=== PATIENT | female | born 1945 | race Caucasian/White ===

== ENCOUNTER 2022-12-31 14:52 | Outpatient (AMB) | payer OTHER, SELFPAY ==
--- NOTE | 2022-12-31 15:31 | MHC.OFFWIV ---
Intake Vital Signs 12/31/22 15:35 Height 5 ft 1.5 in Weight 157 lb 6 oz BMI 29.3 BP 116/82 Blood Pressure Location Lt brachial Position Sitting Pulse 85 Pulse Source Pulse Oximeter Temp 99.5 F Temp Source Oral Pulse Oximetry (%) 94 Oxygen Delivery Method Room Air Intake Visit Reasons: EP, fever, body aches, right ear pain (masked) Intake Note: pt is here for a fever and body aches since over the weekend and she says she has a sharp right ear pain since Sep Allergies amoxicillin Allergy (Severe, Verified 12/31/22 16:07) Rash ampicillin Allergy (Severe, Verified 12/31/22 16:07) Rash Penicillins Allergy (Severe, Verified 12/31/22 16:07) Rash erythromycin base Allergy (Intermediate, Verified 12/31/22 16:07) Vomiting Medication List - Last Reconciled 12/31/22 by Joseph Fang MD albuterol sulfate 90 mcg/actuation inhalation atorvastatin 20 mg PO DAILY ipratropium bromide intranasal multivitamin (Daily Multi-Vitamin tablet) 1 tab PO DAILY vit C,D-Nd-blwvf-lutein-zeaxan 250-90-40-1 mg (PreserVision AREDS-2) 1 tab PO BID HPI EP, fever, body aches, right ear pain (masked) HPI Details Patient presents for a sick visit. Reporting symptoms of sinus congestion, sore throat and difficulty swallowing. Low-grade fever. No family member is sick. No recent travel. Patient reports symptoms of malaise and fatigue. Physical Exam Vital Signs: Last Vital Signs Temp 99.5 F 12/31/22 15:35 Pulse 85 12/31/22 15:35 BP 116/82 12/31/22 15:35 Pulse Ox 94 12/31/22 15:35 Oxygen Delivery Method Room Air 12/31/22 15:35 BMI result Body Mass Index 29.3 Const General: cooperative and healthy appearing Nutritional Appearance: well nourished Orientation/consciousness: patient oriented x3 Limitations: no limitations HEENT Head: Yes normal to inspection Eyes General: appearance normal, both eyes and all related structures Neck Neck: Yes normal visual inspection Chest Chest palpation & inspection: normal palpation of entire chest wall Resp Effort & Inspection: normal respiratory effort Neuro General: patient oriented x3 Assessment & Plan Assessment & Plan (1) Upper respiratory tract infection: Code(s): J06.9 - Acute upper respiratory infection, unspecified Plan: Antibiotics ordered. Increase fluid intake. Tylenol for aches and pains. If symptoms worsen, follow-up here for a recheck. Coding Level of Care Code New Pt Level 3 (58845) Diagnoses Upper respiratory tract infection J06.9
[2022-12-31 15:35] VITALS: BP 116/82; PULSE 85; TEMP 37.5; O2SAT 94; BMI 29.3
== END 2022-12-31 16:15 | disposition home or self-care (01) ==
PROVIDERS: PCP Internal Medicine; Visit Provider Internal Medicine
DX: J06.9 Acute upper respiratory infection, unspecified (principal)
CPT/HCPCS: 99203

== ENCOUNTER 2023-05-19 07:36 | Outpatient (AMB) | payer OTHER, SELFPAY ==
[2023-05-19 07:55] VITALS: BP 124/80; PULSE 77; O2SAT 97; BMI 29.9
--- NOTE | 2023-05-19 07:55 | MHC.PC.OV ---
Vital Signs 05/19/23 07:55 Height 5 ft 1.5 in Weight 161 lb BMI 29.9 BP 124/80 Blood Pressure Location Lt brachial Position Sitting Pulse 77 Pulse Source Pulse Oximeter Pulse Oximetry (%) 97 Oxygen Delivery Method Room Air Intake Visit Reasons: Est Care/requesting PE Intake Note: Pt is here today as a new patient to est care/PE Allergies amoxicillin Allergy (Severe, Verified 05/19/23 07:56) Rash ampicillin Allergy (Severe, Verified 05/19/23 07:56) Rash Penicillins Allergy (Severe, Verified 05/19/23 07:56) Rash erythromycin base Allergy (Intermediate, Verified 05/19/23 07:56) Vomiting alendronate sodium [From Fosamax] Adverse Reaction (Unverified 05/19/23 08:10) GERD Medication List - Last Reconciled 05/19/23 by Xiomy Mclean MD albuterol sulfate 90 mcg/actuation inhalation atorvastatin 20 mg PO DAILY cholecalciferol (vitamin D3) 125 mcg PO QWEEK ipratropium bromide intranasal multivitamin (Daily Multi-Vitamin tablet) 1 tab PO DAILY vit C,B-Sl-ealns-lutein-zeaxan 250-90-40-1 mg (PreserVision AREDS-2) 1 tab PO BID Tobacco use date assessed: 05/19/23 Fall risk assessment: No Falls in past year Last assessed Fall Risk: 05/19/23 Dental Screening Dental Screen Date: 05/19/23 Did you have a dental visit in the last 12 months?: Yes Did you have a dental problem in the last 6 months where you did not have access to dental care?: No Was dental information given to patient?: Patient has dentist HPI Est Care/requesting PE HPI Details Pt presents for [employer] PE. 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 1. Little interest or pleasure in doing things: not at all 2. Feeling down, depressed, or hopeless: not at all 3. Trouble falling or staying asleep, or sleeping too much: more than half the days 4. Feeling tired or having little energy: more than half the days 5. Poor appetite or overeating: not at all 6. Feeling bad about yourself - or that you are a failure or have let yourself or your family down: not at all 7. Trouble concentrating on things, such as reading the newspaper or watching television: not at all 8. Moving or speaking so slowly that other people could have noticed. Or the opposite - being so fidgety or restless that you have been moving around a lot more than usual: not at all 9. Thoughts that you would be better off or of hurting yourself in some way: not at all Total score: 4 Depression Screening Interpretation: Negative Depression Screening Done: Yes Source: Developed by Drs. Mynor Zhou, Jennyfer Mullen, Imtiaz Navarrete and colleagues, with an educational vidya from [employer] Thrive Questionnaire Date Thrive assessed: 05/19/23 I am a: Patient What is your living situation today?: I have a steady place to live Within the past 12 months, did the food you bought not last and you didn't have the money to get more?: Never true Within the past 12 months, did you worry whether your food would run out before you got money to buy more?: Never true Do you have trouble paying for medicines?: No Do you have trouble getting transportation to medical appointments?: No Do you have trouble paying your heating and electricity bill?: No Do you have trouble taking care of your child, family member or friend?: No Do you have trouble with day-to-day activities such as bathing, preparing meals, shopping, managing finances, etc.?: No Are you currently unemployed and looking for a job?: No Are you interested in more education?: No THRIVE Score: 0 AUDIT C Alcohol Use Questionnaire (AUDIT-C) 1. How often do you have a drink containing alcohol?: Never Total Score: 0 PHOEBE-7 AMB Questionnaire PHOEBE-7 Date PHOEBE - 7 assessed: 05/19/23 Feeling nervous, anxious, or on edge: 0 = Not at all Not being able to stop or control worryin = Not at all Worrying too much about different things: 0 = Not at all Trouble relaxin = Not at all Being so restless that it is hard to sit still: 0 = Not at all Becoming easily annoyed or irritable: 0 = Not at all Feeling afraid as if something awful might happen: 0 = Not at all Total PHOEBE-7 score (0-4 normal; 5-9 mild; 10-14 moderate; 15-21 severe): 0 Source: Developed by Drs. Mynor Zhou, Jennyfer Mullen, Imtiaz Navarrete and colleagues, with an educational vidya from [employer]). Review of Systems Const All systems reviewed & are unremarkable except as noted in HPI and below Reports no additional complaints Eyes Reports no additional complaints ENT Reports no additional complaints Card Reports no additional complaints Resp Reports no additional complaints GI Reports no additional complaints Reports no additional complaints Physical exam (Primary Care) Vital Signs: Last Vital Signs Pulse 77 05/19/23 07:55 BP 124/80 05/19/23 07:55 Pulse Ox 97 05/19/23 07:55 Oxygen Delivery Method Room Air 05/19/23 07:55 BMI result Body Mass Index 29.9 Tobacco/Smoking Status: Tobacco use Status Tobacco use date assessed 05/19/23 05/19/23 08:00 Patient Tobacco Use Status Never used Tobacco 05/19/23 08:00 e-Cigarette/Vaping Use Never Used 05/19/23 08:00 PHQ-9: PHQ-9 Score PHQ-9: Total score 4 05/19/23 08:02 Depression Screening Interpretation: Negative Thrive Assessment: Date of Thrive Assessment Date Thrive assessed 05/19/23 05/19/23 08:02 Const General: no acute distress HENMT Head: Yes normal to inspection Ears: hearing grossly normal bilaterally General nose exam: Normal external nose present Face and sinus: Yes normal facial exam Mouth: Normal oral and palatal mucosa present Eyes General: appearance normal, both eyes and all related structures Neck Neck: Yes no lymphadenopathy and Yes supple Resp Effort & Inspection: normal respiratory effort Auscultation: clear to auscultation bilaterally Cardio Rhythm: regular rhythm Heart sounds: S1 normal heart sound present and S2 normal heart sound present GI Inspection: Yes normal to inspection Palpation (GI): Soft to palpation Percussion: Yes normal to percussion Auscultation: normal bowel sounds Assessment and Plan Assessment & Plan (1) Hx of bilateral breast reduction surgery: Code(s): Z98.890 - Other specified postprocedural states (2) Hyperlipidemia: Code(s): E78.5 - Hyperlipidemia, unspecified Plan: CONTINUE LIPITOR CHECK BLOOD WORK TODAY (3) Vitamin D deficiency: Comment: Patient has been taking 5000 units of vitamin-D every day Code(s): E55.9 - Vitamin D deficiency, unspecified Plan: Check vitamin-D level (4) Seasonal allergic rhinitis: Comment: Follow-up with head animal keeper Code(s): J30.2 - Other seasonal allergic rhinitis (5) Hx of colonoscopy: Comment: negative [place] at 76 Code(s): Z98.890 - Other specified postprocedural states (6) Osteoporosis: Comment: DEXA 03/2021, intolerant to Fosamax GERD Code(s): M81.0 - Age-related osteoporosis without current pathological fracture Plan: Obtain DEXA (7) Annual physical exam: Code(s): Z00.00 - Encounter for general adult medical examination without abnormal findings Plan: Well-balanced diet regular exercise discussed with the patient. She will have a fasting blood work DEXA will be scheduled, patient will follow-up in 2 months Orders: Orders Complete Blood Count Auto Diff Today E55.9 - Vitamin D deficiency, unspecified, E78.5 - Hyperlipidemia, unspecified XR DEXA axial skeleton Today E55.9 - Vitamin D deficiency, unspecified, E78.5 - Hyperlipidemia, unspecified MM screening mammo BI Today Z12.31 - Encounter for screening mammogram for malignant neoplasm of breast Vitamin D 25-OH Total Today E55.9 - Vitamin D deficiency, unspecified, E78.5 - Hyperlipidemia, unspecified Lipid Panel Today E55.9 - Vitamin D deficiency, unspecified, E78.5 - Hyperlipidemia, unspecified Comprehensive [place]. Panel Fast Today E55.9 - Vitamin D deficiency, unspecified, E78.5 - Hyperlipidemia, unspecified UA w Microscopic Today E55.9 - Vitamin D deficiency, unspecified, E78.5 - Hyperlipidemia, unspecified Referrals Allergy & Immunology Referral J30.2 - Other seasonal allergic rhinitis Medications: New atorvastatin 20 mg PO DAILY 90 tabs 3RF Coding Level of Care Code New Pt Prev Care >65yr (74045) Diagnoses Hx of bilateral breast reduction surgery Z98.890 Hyperlipidemia E78.5 Vitamin D deficiency E55.9 Seasonal allergic rhinitis J30.2 Hx of colonoscopy Z98.890 Osteoporosis M81.0 Annual physical exam Z00.00
== END 2023-05-19 09:48 | disposition home or self-care (01) ==
PROVIDERS: PCP Internal Medicine; Visit Provider Internal Medicine
DX: Z98.890 Other specified postprocedural states (principal); E78.5 Hyperlipidemia, unspecified; E55.9 Vitamin D deficiency, unspecified; J30.2 Other seasonal allergic rhinitis; M81.0 Age-related osteoporosis without current pathological fracture; Z00.00 Encounter for general adult medical examination without abnormal findings
CPT/HCPCS: 99387

== ENCOUNTER 2023-05-19 08:29 | Outpatient (REF) | payer OTHER, SELFPAY ==
[2023-05-19 11:18] LABS: MANUAL DIFF FLAG NO
[2023-05-19 11:31] LABS: Basophils Percent Auto 0.7 % (0-2); Eosinophils Absolute Auto 0.1 X10*3/uL (0.0-0.4); Eosinophils Percent Auto 2.1 % (0-4); Hematocrit 42.3 % (37.0-47.0); Hemoglobin 13.5 g/dl (12.0-16.0); Imm Gran Abs Auto 0.01 X10*3/uL (0.00-0.03); Imm Gran Pct Auto 0.2 % (0.0-0.4); Lymphocytes Absolute Auto 1.1 X10*3/uL (1.2-4.9); Lymphocytes Percent Auto 24.9 % (20-40); Mean Corpuscular HGB Conc 31.9 g/dl (31.0-35.0); Mean Corpuscular Hemoglobin 31.5 pg (27.0-33.0); Mean Corpuscular Volume 98.8 fL (80.0-98.0); Mean Platelet Volume 10.3 fL (9.4-12.3); Monocytes Absolute Auto 0.6 X10*3/uL (0.1-1.2); Monocytes Percent Auto 12.8 % (2-11); Neutrophils Absolute Auto 2.5 x10*3/uL (2.0-8.3); Neutrophils Percent Auto 59.3 % (45-73); Platelet Count 210 X10*3/uL (160-400); Red Blood Count 4.28 X10*6/uL (4.20-5.50); Red Cell Distribution Width 13.3 % (11.0-16.0); White Blood Count 4.3 X10*3/uL (4.8-10.8)
[2023-05-19 12:12] LABS: Appearance Urine Clear; Color Urine Yellow; Glucose Urine UA Negative (Negative); Leukocyte Esterase Urine Negative (Negative); Nitrite Urine Negative (Negative); Specific Gravity - Urine 1.025 (1.005-1.025); Urine Blood Negative (Negative); Urine Ketones Negative (Negative); Urine Protein Negative (Neg-Trace)
[2023-05-19 12:16] LABS: Bacteria Urine None Seen (None Seen); Hyaline Casts Urine 0-2 /LPF (0-2); RBC Urine 0-2 /HPF (0-2); Squamous Epithelial Cell Urine 0-2 /HPF (0-2); WBC Urine 0-5 /HPF (0-5)
[2023-05-19 14:04] LABS: Alanine Aminotransferase 27 U/L (0-31); Albumin Level 4.3 g/dL (3.5-5.0); Alkaline Phosphatase 69 U/L (39-117); Anion Gap 12 (12-20); Aspartate Amino Transferase 29 U/L (5-31); Blood Urea Nitrogen 13 mg/dL (9-16); Calcium 10.1 mg/dL (8.4-10.2); Carbon Dioxide 26 mmol/L (22-29); Chloride 111 mmol/L (96-108); Cholesterol 159 mg/dL (<200); Estimated Glomerular Filt Rate > 60; Glucose Fasting 99 mg/dL (60-99); HDL Cholesterol 73 mg/dL (>40); LDL Cholesterol Calculated 75 mg/dL (<100); Potassium 4.6 mmol/L (3.3-5.1); Sodium 144 mmol/L (135-145); Total Protein 7.2 g/dL (6.5-8.0); Triglycerides 56 mg/dL (<150)
[2023-05-19 14:20] LABS: Vitamin D 25-OH Total 30.3 ng/mL (>30)
== END 2023-05-19 08:30 | disposition home or self-care (01) ==
LOC: HO.HMGCLDS 08:29
PROVIDERS: PCP Internal Medicine; Visit Provider Internal Medicine
DX: E55.9 Vitamin D deficiency, unspecified (principal); E78.5 Hyperlipidemia, unspecified
CPT/HCPCS: 36415; 80053; 80061; 81001; 82306; 85025

== ENCOUNTER 2023-06-13 08:55 | Outpatient (REF) | payer OTHER, SELFPAY ==
--- NOTE | ~2023-06-13 | MM_ITS ---
EXAMINATION: BONE DENSITOMETRY CLINICAL INDICATION: Vitamin D deficiency, unspecified. COMPARISON: Baseline BD dated 05/07/2007. TECHNIQUE: Using a cielo24 DXA System (software version: 13.1) manufactured by [employer], dual-energy x-ray absorptiometry was performed of the lumbar spine and left hip. The images are of good technical quality. Summary results are attached. FINDINGS: LEFT FEMUR, NECK: Current: BMD 0.696 g/cm2, Z-score -0.6, T-score -2.5, osteoporosis. Baseline: BMD 0.741 g/cm2. LEFT FEMUR, TOTAL: Current: BMD 0.792 g/cm2, Z-score 0.0, T-score -1.7, osteopenia, 4.6% decrease from baseline (<5% change is not significant). Baseline: BMD 0.830 g/cm2. AP SPINE L1-L4: Current: BMD 0.932 g/cm2, Z-score -0.5, T-score -2.1, osteopenia, 1.8% decrease from baseline (<5% change is not significant). Baseline: BMD 0.949 g/cm2. IDENTIFIED RISK FACTORS: Early menopause, left oophorectomy, low calcium intake, osteoporosis, renal, secondary osteoporosis. HISTORY OF FRACTURE: None listed. MEDICATIONS: Multivitamin, vitamin D. MM/XR DEXA axial skeleton IMPRESSION: 1. DIAGNOSIS: Osteoporosis based on the lowest T-score value of -2.5 in the femoral neck applying World Health Organization criteria. 2. 10-YEAR FRACTURE RISK PREDICTION, FRAX: According to the guidelines, FRAX calculation should only be performed on patients in the osteopenia bone density category. Therefore, FRAX was not performed on this patient. 3. Treatment Recommendations: NOF guidelines recommend consideration for treatment in postmenopausal women and men age 50 and older presenting with the following: -A hip or vertebral (clinical or morphometric) fracture. -T-score less than or equal to -2.5 at the femoral neck or spine after appropriate evaluation to exclude secondary causes. -Low bone mass at the hip or spine and a 10-year fracture probability by FRAX of greater than or equal to 3% for hip fracture or greater than or equal to 20% for major osteoporotic fracture based on the [place] adapted WHO algorithm. 4. Other Recommendations: All treatment decisions require clinical judgment and consideration of individual patient factors, including patient preferences, comorbidities, previous drug use, risk factors not captured in the FRAX model (e.g. frailty, falls, vitamin D deficiency, increased bone turnover, interval significant decline in bone density) and possible under or overestimation of fracture risk by FRAX. Additional medical evaluation for secondary cause of low bone mineral density may be appropriate. FUTURE SCAN RECOMMENDATION: People with diagnosed cases of osteoporosis or at high risk for fracture should have regular bone mineral density tests. For patients eligible for Medicare, routine testing is allowed once every 2 years. The testing frequency can be increased to one year for patients who have rapidly progressing disease, those who are receiving or discontinuing medical therapy to restore bone mass, or have additional risk factors.
== END 2023-06-13 08:56 | disposition home or self-care (01) ==
LOC: HO.MAMMO 08:55
PROVIDERS: PCP Internal Medicine; Visit Provider Internal Medicine
DX: Z12.31 Encounter for screening mammogram for malignant neoplasm of breast (principal); Z13.820 Encounter for screening for osteoporosis; Z78.0 Asymptomatic menopausal state; E55.9 Vitamin D deficiency, unspecified; E78.5 Hyperlipidemia, unspecified
CPT/HCPCS: 77063; 77067; 77080

== ENCOUNTER → 2023-06-13 09:15 | Outpatient (BNV) | payer OTHER, SELFPAY | PROVIDERS: PCP Internal Medicine; Visit Provider Radiology Diagnostic Radiology | DX: Z12.31 Encounter for screening mammogram for malignant neoplasm of breast (principal) | CPT/HCPCS: 77063; 77067 ==

== ENCOUNTER 2023-07-24 09:40 | Outpatient (AMB) | payer OTHER, SELFPAY ==
[2023-07-24 10:13] VITALS: BP 128/78; PULSE 72; O2SAT 95; BMI 29.7
--- NOTE | 2023-07-24 10:13 | A.OFFPC_ITS ---
Vital Signs 07/24/23 10:13 Height 5 ft 1.5 in Weight 160 lb BMI 29.7 BP 128/78 Blood Pressure Location Lt brachial Position Sitting Pulse 72 Pulse Source Pulse Oximeter Pulse Oximetry (%) 95 Oxygen Delivery Method Room Air Intake Visit Reasons: 2 month follow up Intake Note: Pt is here today for 2 months follow up visit. Allergies amoxicillin Allergy (Severe, Verified 07/24/23 10:13) Rash ampicillin Allergy (Severe, Verified 07/24/23 10:13) Rash Penicillins Allergy (Severe, Verified 07/24/23 10:13) Rash erythromycin base Allergy (Intermediate, Verified 07/24/23 10:13) Vomiting alendronate sodium [From Fosamax] Adverse Reaction (Unverified 07/24/23 10:13) GERD Medication List - Last Reconciled 07/24/23 by Xiomy Mclean MD albuterol sulfate 90 mcg/actuation inhalation atorvastatin 20 mg PO DAILY cholecalciferol (vitamin D3) 125 mcg PO QWEEK ipratropium bromide intranasal multivitamin (Daily Multi-Vitamin tablet) 1 tab PO DAILY vit C,H-Uw-zecbv-lutein-zeaxan 250-90-40-1 mg (PreserVision AREDS-2) 1 tab PO BID Tobacco use date assessed: 07/24/23 Dental Screening Dental Screen Date: 05/19/23 HPI 2 month follow up HPI Details Patient presents for the follow-up of hyperlipidemia stable on atorvastatin. She had DEXA consistent with the lowest T-score -2.5 femoral neck. 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 How often do you have a drink containing alcohol?: Never 3. How often do you have six or more drinks on one occasion?: Never Total Score: 0 PHOEBE-7 AMB Questionnaire PHOEBE-7 Date PHOEBE - 7 assessed: 05/19/23 Feeling nervous, anxious, or on edge: 1 = Several days Not being able to stop or control worryin = Several days Worrying too much about different things: 1 = Several days Trouble relaxin = Several days Being so restless that it is hard to sit still: 0 = Not at all Becoming easily annoyed or irritable: 0 = Not at all Feeling afraid as if something awful might happen: 0 = Not at all Total PHOEBE-7 score (0-4 normal; 5-9 mild; 10-14 moderate; 15-21 severe): 4 Source: Developed by Drs. Mynor Zhou, Jennyfer Mullen, Imtiaz Navarrete and colleagues, with an educational vidya from [employer]. Review of Systems Const All systems reviewed & are unremarkable except as noted in HPI and below ENT Reports no additional complaints Card Reports no additional complaints Resp Reports no additional complaints GI Reports no additional complaints Reports no additional complaints Physical exam (Primary Care) Vital Signs: Last Vital Signs Pulse 72 07/24/23 10:13 BP 128/78 07/24/23 10:13 Pulse Ox 95 07/24/23 10:13 Oxygen Delivery Method Room Air 07/24/23 10:13 BMI result Body Mass Index 29.7 Tobacco/Smoking Status: Tobacco use Status Tobacco use date assessed 07/24/23 07/24/23 10:19 Patient Tobacco Use Status Never used Tobacco 07/24/23 10:19 e-Cigarette/Vaping Use Never Used 07/24/23 10:19 Thrive Assessment: Date of Thrive Assessment Date Thrive assessed 05/19/23 07/24/23 10:19 Const General: no acute distress HENMT Head: Yes normal to inspection Face and sinus: Yes normal facial exam Throat: Yes posterior oropharynx normal Eyes General: appearance normal, both eyes and all related structures Neck Neck: Yes no lymphadenopathy and Yes supple Resp Effort & Inspection: normal respiratory effort Auscultation: clear to auscultation bilaterally Cardio Rhythm: regular rhythm Heart sounds: S1 normal heart sound present and S2 normal heart sound present GI Inspection: Yes normal to inspection Palpation (GI): Soft to palpation Percussion: Yes normal to percussion Auscultation: normal bowel sounds Assessment and Plan Assessment & Plan (1) Hyperlipidemia: Code(s): E78.5 - Hyperlipidemia, unspecified Plan: Continue statin (2) Osteoporosis: Comment: DEXA 05/2023, intolerant to Fosamax GERD, T score -2.5 femoral neck, continue vitamin-D and exercise recheck DEXA in 2 years Code(s): M81.0 - Age-related osteoporosis without current pathological fracture Plan: Continue vitamin-D supplement and exercise, return for physical in 1 year with a fasting labs before Orders: Orders Comprehensive [place]. Panel Fast 10 Months E55.9 - Vitamin D deficiency, unspecified, E78.5 - Hyperlipidemia, unspecified, M81.0 - Age-related osteoporos is without current pathological fracture Lipid Panel 10 Months E55.9 - Vitamin D deficiency, unspecified, E78.5 - Hyperlipidemia, unspecified, M81.0 - Age-related osteoporosis without current pathological fracture Complete Blood Count Auto Diff 10 Months E55.9 - Vitamin D deficiency, unspecified, E78.5 - Hyperlipidemia, unspecified, M81.0 - Age-related osteoporosis without current pathological fracture Vitamin D 25-OH Total 10 Months E55.9 - Vitamin D deficiency, unspecified, E78.5 - Hyperlipidemia, unspecified, M81.0 - Age-related osteoporosis without current pathological fracture Medications: New diclofenac sodium 1% apply to l TOES 2 grams topical QID 100 grams 3RF Coding Level of Care Code Est Pt Level 3 (06961) Diagnoses Hyperlipidemia E78.5 Osteoporosis M81.0
== END 2023-07-24 11:04 | disposition home or self-care (01) ==
PROVIDERS: PCP Internal Medicine; Visit Provider Internal Medicine
DX: E78.5 Hyperlipidemia, unspecified (principal); M81.0 Age-related osteoporosis without current pathological fracture
CPT/HCPCS: 99213

== ENCOUNTER 2024-05-17 10:24 | Outpatient (REF) | payer MEDICARE, SELFPAY ==
[2024-05-17 13:34] LABS: MANUAL DIFF FLAG NO
[2024-05-17 13:43] LABS: Basophils Percent Auto 0.8 % (0-2); Eosinophils Absolute Auto 0.1 X10*3/uL (0.0-0.4); Eosinophils Percent Auto 2.7 % (0-4); Hematocrit 41.5 % (37.0-47.0); Hemoglobin 13.2 g/dl (12.0-16.0); Imm Gran Abs Auto 0.01 X10*3/uL (0.00-0.03); Imm Gran Pct Auto 0.2 % (0.0-0.4); Lymphocytes Absolute Auto 1.4 X10*3/uL (1.2-4.9); Lymphocytes Percent Auto 29.1 % (20-40); Mean Corpuscular HGB Conc 31.8 g/dl (31.0-35.0); Mean Corpuscular Hemoglobin 31.4 pg (27.0-33.0); Mean Corpuscular Volume 98.6 fL (80.0-98.0); Mean Platelet Volume 10.9 fL (9.4-12.3); Monocytes Absolute Auto 0.6 X10*3/uL (0.1-1.2); Neutrophils Absolute Auto 2.6 x10*3/uL (2.0-8.3); Neutrophils Percent Auto 54.2 % (45-73); Platelet Count 216 X10*3/uL (160-400); Red Blood Count 4.21 X10*6/uL (4.20-5.50); Red Cell Distribution Width 13.5 % (11.0-16.0); White Blood Count 4.8 X10*3/uL (4.8-10.8)
[2024-05-17 13:57] LABS: Alanine Aminotransferase 30 U/L (0-31); Albumin Level 4.2 g/dL (3.5-5.0); Alkaline Phosphatase 65 U/L (39-117); Anion Gap 10 (12-20); Aspartate Amino Transferase 33 U/L (5-31); Bilirubin Total 1.4 mg/dL (0.0-1.0); Blood Urea Nitrogen 16 mg/dL (9-16); Calcium 10.1 mg/dL (8.4-10.2); Carbon Dioxide 28 mmol/L (22-29); Chloride 107 mmol/L (96-108); Cholesterol 153 mg/dL (<200); Estimated Glomerular Filt Rate > 60; Glucose Fasting 93 mg/dL (60-99); HDL Cholesterol 62 mg/dL (>40); LDL Cholesterol Calculated 73 mg/dL (<100); Potassium 4.2 mmol/L (3.3-5.1); Sodium 141 mmol/L (135-145); Triglycerides 93 mg/dL (<150)
[2024-05-17 14:16] LABS: Vitamin D 25-OH Total 46.1 ng/mL (>30)
== END 2024-05-17 10:25 | disposition home or self-care (01) ==
LOC: HO.HMGCLDS 10:24
PROVIDERS: PCP Internal Medicine; Visit Provider Internal Medicine
DX: M81.0 Age-related osteoporosis without current pathological fracture (principal); E78.5 Hyperlipidemia, unspecified; E55.9 Vitamin D deficiency, unspecified
CPT/HCPCS: 36415; 80053; 80061; 82306; 85025

== ENCOUNTER 2024-05-31 11:46 | Outpatient (AMB) | payer OTHER, SELFPAY ==
[2024-05-31 11:52] VITALS: BP 128/78; PULSE 67; RESP 18; TEMP 36.4; O2SAT 97; BMI 29.6
--- NOTE | 2024-05-31 11:52 | MHC.PC.OV ---
Vital Signs 05/31/24 11:52 Height 5 ft 1.5 in Weight 159 lb BMI 29.6 BP 128/78 Blood Pressure Location Lt brachial Position Sitting Respiration 18 Pulse 67 Pulse Source Pulse Oximeter Temp 97.6 F Temp Source Oral Pulse Oximetry (%) 97 Oxygen Delivery Method Room Air Intake Visit Reasons: Annual PE Intake Note: Pt is here today for PE. Allergies amoxicillin Allergy (Severe, Verified 05/31/24 11:52) Rash ampicillin Allergy (Severe, Verified 05/31/24 11:52) Rash Penicillins Allergy (Severe, Verified 05/31/24 11:52) Rash erythromycin base Allergy (Intermediate, Verified 05/31/24 11:52) Vomiting alendronate sodium [From Fosamax] Adverse Reaction (Unverified 05/31/24 11:52) GERD Medication List - Last Reconciled 05/31/24 by Xiomy Mclean MD albuterol sulfate 90 mcg/actuation inhalation atorvastatin 20 mg PO DAILY cholecalciferol (vitamin D3) 125 mcg PO QWEEK diclofenac sodium 1% 2 grams topical QID ipratropium bromide intranasal multivitamin (Daily Multi-Vitamin tablet) 1 tab PO DAILY vit C,W-Sz-edjbd-lutein-zeaxan 250-90-40-1 mg (PreserVision AREDS-2) 1 tab PO BID Tobacco use date assessed: 05/31/24 Fall risk assessment: 1 Fall in past year Last assessed Fall Risk: 05/31/24 Dental Screening Dental Screen Date: 05/31/24 Did you have a dental visit in the last 12 months?: Yes Did you have a dental problem in the last 6 months where you did not have access to dental care?: No Was dental information given to patient?: Patient has dentist HPI Annual PE HPI Details Pt presents for PE. 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 1. Little interest or pleasure in doing things: not at all 2. Feeling down, depressed, or hopeless: not at all 3. Trouble falling or staying asleep, or sleeping too much: more than half the days 4. Feeling tired or having little energy: more than half the days 5. Poor appetite or overeating: not at all 6. Feeling bad about yourself - or that you are a failure or have let yourself or your family down: not at all 7. Trouble concentrating on things, such as reading the newspaper or watching television: not at all 8. Moving or speaking so slowly that other people could have noticed. Or the opposite - being so fidgety or restless that you have been moving around a lot more than usual: not at all 9. Thoughts that you would be better off or of hurting yourself in some way: not at all Total score: 4 Depression Screening Interpretation: Negative Depression Screening Done: Yes 74900 - PHQ-9 Billing: Yes Source: Developed by Drs. Mynor Zhou, Jennyfer Mullen, Imtiaz Navarrete and colleagues, with an educational vidya from [employer]. Thrive Questionnaire Date Thrive assessed: 05/31/24 I am a: Patient What is your living situation today?: I have a steady place to live Within the past 12 months, did the food you bought not last and you didn't have the money to get more?: Never true Within the past 12 months, did you worry whether your food would run out before you got money to buy more?: I choose not to answer this question Do you have trouble paying for medicines?: No Do you have trouble getting transportation to medical appointments?: No Do you have trouble paying your heating and electricity bill?: No Do you have trouble taking care of your child, family member or friend?: No Do you have trouble with day-to-day activities such as bathing, preparing meals, shopping, managing finances, etc.?: No Are you currently unemployed and looking for a job?: No Are you interested in more education?: Yes Please select the resources that you would like help with: None Currently or been in a relationship where the following occur: No concerns reported THRIVE Score: 0 AUDIT C Alcohol Use Questionnaire (AUDIT-C) 1. How often do you have a drink containing alcohol?: Never 3. How often do you have six or more drinks on one occasion?: Never Total Score: 0 PHOEBE-7 AMB Questionnaire PHOEBE-7 Date PHOEBE - 7 assessed: 05/31/24 Feeling nervous, anxious, or on edge: 0 = Not at all Not being able to stop or control worryin = Several days Worrying too much about different things: 1 = Several days Trouble relaxin = Several days Being so restless that it is hard to sit still: 0 = Not at all Becoming easily annoyed or irritable: 0 = Not at all Feeling afraid as if something awful might happen: 0 = Not at all Total PHOEBE-7 score (0-4 normal; 5-9 mild; 10-14 moderate; 15-21 severe): 3 Source: Developed by Drs. Mynor Zhou, Jennyfer Mullen, Imtiaz Navarrete and colleagues, with an educational vidya from [employer]. PHOEBE-7 Assessment Billing PHOEBE-7 Assessment Tool: PHOEBE-7 Assessment 29116 Review of Systems Const All systems reviewed & are unremarkable except as noted in HPI and below Reports no additional complaints Eyes Reports no additional complaints ENT Reports no additional complaints Card Reports no additional complaints Resp Reports no additional complaints GI Reports no additional complaints Physical exam (Primary Care) Vital Signs: Last Vital Signs Temp 97.6 F 05/31/24 11:52 Pulse 67 05/31/24 11:52 Resp 18 05/31/24 11:52 BP 128/78 05/31/24 11:52 Pulse Ox 97 05/31/24 11:52 Oxygen Delivery Method Room Air 05/31/24 11:52 BMI result Body Mass Index 29.6 Tobacco/Smoking Status: Tobacco use Status Tobacco use date assessed 05/31/24 05/31/24 11:59 Patient Tobacco Use Status Never used Tobacco 05/31/24 11:59 e-Cigarette/Vaping Use Never Used 05/31/24 11:59 PHQ-9: PHQ-9 Score PHQ-9: Total score 4 04/07/25 12:25 Depression Screening Interpretation: Negative Thrive Assessment: Date of Thrive Assessment Date Thrive assessed 05/31/24 05/31/24 11:59 Currently or been in a relationship where the following occur: No concerns reported Const General: no acute distress HENMT Head: Yes normal to inspection Face and sinus: Yes normal facial exam Mouth: Normal oral and palatal mucosa present Eyes General: appearance normal, both eyes and all related structures Neck Neck: Yes no lymphadenopathy and Yes supple Resp Effort & Inspection: normal respiratory effort Auscultation: clear to auscultation bilaterally Cardio Rhythm: regular rhythm Heart sounds: S1 normal heart sound present and S2 normal heart sound present GI Inspection: Yes normal to inspection Palpation (GI): Soft to palpation Percussion: Yes normal to percussion Auscultation: normal bowel sounds Coding Level of Care Code Est Pt Prev Care >65y(59348) Diagnoses Annual physical exam Z00.00 Elevated LFTs R79.89 Hyperlipidemia E78.5 Additional Codes PHOEBE-7 Assessment Billing - PHOEBE-7 Assessment Tool: PHOEBE-7 Assessment 54050 ([id number]) PHQ-9 - 82897 - PHQ-9 Billing: Yes ([id number]) Assessment & Plan Assessment & Plan (1) Annual physical exam: Code(s): Z00.00 - Encounter for general adult medical examination without abnormal findings Category: Medical Plan: well balanced diet, regular exercise discussed (2) Elevated LFTs: Comment: borderline Code(s): R79.89 - Other specified abnormal findings of blood chemistry Category: Medical Plan: low simple carb diet, avoid NSAIDs discussed, repeat LFTs in 6 months (3) Hyperlipidemia: Code(s): E78.5 - Hyperlipidemia, unspecified Category: Medical Plan: cont statin Orders: Orders Comprehensive Cot[place]. Panel Fast 1 Year E55.9 - Vitamin D deficiency, unspecified, E78.5 - Hyperlipidemia, unspecified, R79.89 - Other specified abnormal findings of blood chemistry Complete Blood Count Auto Diff 1 Year E55.9 - Vitamin D deficiency, unspecified, E78.5 - Hyperlipidemia, unspecified, R79.89 - Other specified abnormal findings of blood chemistry Comprehensive [place]. Panel Fast 6 Months R79.89 - Other specified abnormal findings of blood chemistry, Z00.00 - Encounter for general adult medical examination without abnormal findings Lipid Panel 1 Year E55.9 - Vitamin D deficiency, unspecified, E78.5 - Hyperlipidemia, unspecified, R79.89 - Other specified abnormal findings of blood chemistry Vitamin D 25-OH Total 1 Year E55.9 - Vitamin D deficiency, unspecified, E78.5 - Hyperlipidemia, unspecified, R79.89 - Other specified abnormal findings of blood chemistry
== END 2024-05-31 12:33 | disposition home or self-care (01) ==
LOC: HO.HMCC 11:46
PROVIDERS: PCP Internal Medicine; Visit Provider Internal Medicine
DX: Z00.00 Encounter for general adult medical examination without abnormal findings (principal); R79.89 Other specified abnormal findings of blood chemistry; E78.5 Hyperlipidemia, unspecified

== ENCOUNTER → 2024-05-31 11:46 | Outpatient (BNVA) | payer MEDICARE, SELFPAY | PROVIDERS: PCP Internal Medicine; Visit Provider Internal Medicine | DX: Z00.00 Encounter for general adult medical examination without abnormal findings (principal); R79.89 Other specified abnormal findings of blood chemistry; E78.5 Hyperlipidemia, unspecified; E55.9 Vitamin D deficiency, unspecified | CPT/HCPCS: 96127 ==

== ENCOUNTER 2024-07-15 09:05 | Outpatient (REF) | payer MEDICARE, SELFPAY | END 2024-07-15 09:06 | disposition home or self-care (01) | LOC: HO.MAMMO 09:05 | PROVIDERS: PCP Internal Medicine; Visit Provider Internal Medicine | DX: Z12.31 Encounter for screening mammogram for malignant neoplasm of breast (principal) | CPT/HCPCS: 77063; 77067 ==

== ENCOUNTER → 2024-07-15 09:15 | Outpatient (BNV) | payer MEDICARE, SELFPAY | PROVIDERS: PCP Internal Medicine; Visit Provider Internal Medicine | DX: Z12.31 Encounter for screening mammogram for malignant neoplasm of breast (principal) | CPT/HCPCS: 77063; 77067 ==

== ENCOUNTER 2024-11-27 07:48 | Outpatient (REF) | payer MEDICARE, SELFPAY ==
--- OUTSIDE RECORDS SUMMARY | 2024-11-27 07:51 | XMS_ITS | Clinical Summary ---
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 Activ e albuterol HFA (PROAIR HFA ; PROVENTIL HFA ; VENTOLIN HFA) 90 mcg/actuation inhaler Inhale 2 puffs by mouth every 4 (four) hours if needed. 3 Active atorvastatin (LIPITOR) 20 mg tablet Take 1 tablet (20 mg total) by mouth at bedtime. 3 Active diclofenac (VOLTAREN) 1 % topical gel Apply 4 g topically 2 (two) times a day. 2 Active furosemide (LASIX) 20 mg tablet Take 1 tablet (20 mg total) by mouth 3 (three) times a week. 3 Active ipratropium (ATROVENT) 21 mcg (0.03 %) nasal spray Administer 2 sprays into each nostril 3 (three) times a day. 3 Active vit A/vit C/vit E/zinc/copper (ICAPS AREDS ORAL) Take by mouth 1 (one) time each day. Active Active Problems Problem Noted Date Diagnosed Date Chronic pain of both shoulders 03/09/2019 Vitamin D deficiency 02/11/2016 CKD (chronic kidney disease) stage 3, GFR 30-59 ml/min (CMS/HCC V24, CMS/HCC V28) 11/09/2014 Hyperlipidemia 04/10/2010 Osteoporosis 06/08/2007 Overview (02/11/2024): 04/17 T score spine -2.0 hip -2.5 Esophageal reflux 08/12/2006 Immunizations Immunization Administration Dates Next Due Influenza trivalent, 0.5mL (Fluad) 65yo and olde r 11/09/2017 Moderna SARS-CoV-2 COVID-19, mRNA, LNP-S, preservative free 07/19/2020 Pneumococcal conjugate 13 va lent (Prevnar 13, PCV13) 2mo and older 12/24/2017 Pneumococcal polysaccharide 23 valent (Pneumovax 23) 2yo and older 08/29/2011 Td Tetanus diptheria (Tdvax) 7yo and older 12/18 Tdap Tetanus diptheria acell ular pertussis (Boostrix; Adacel) 7yo and older 02/23/2009 Zoster Live 04/04/2010 Surgical History Surgery Date Site/Laterality Comments TONSILLECTOMY PROCEDURE: HISTORICAL TONSILLECTOMY SALPINGOOPHORECTOMY 1988 PROCEDURE: ID LAPAROSCOPY W/RMVL ADNEXAL STRUCTURES; COMMENT: left oophorectomy, endometriosis COLONOSCOPY 07/06/2009 PROCEDURE: ID COLONOSCOPY FLX DX W/COLLJ SPEC WHEN PFRMD ADENOIDECTOMY PROCEDURE: HISTORICAL ADENOIDECTOMY BREAST REDUCTION PROCEDURE: ID BREAST REDUCTION; COMMENT: August 2019 COLONOSCOPY 07/13/2020 PROCEDURE: HISTORICAL COLONOSCOPY; COMMENT: negative Medical History Medical History Date Comments Esophageal reflux 08/12/2006 DX:Esophageal reflux Osteopenia of the elderly 05/01 DX:Ost eopenia of the elderly; COMMENT: DEXA, could not tolerate Evista or Fosamax Ankle fracture -2004 DX:Ankle fractur e; COMMENT: casted CKD (chronic kidney disease) stage 3, GFR 30-59 ml/min ([facility] V24, [facility] V28) 11/09/2014 DX:CKD (chronic kidney disea se) stage 3, GFR 30-59 ml/min ([facility]) Osteopenia 06/08/2007 DX:Osteopenia Hyperlipemia 04/10/2010 DX:Hyperlipemia Condyloma acuminata 10/14/2018 DX:Condyloma acuminata; COMMENT: Vulva x 2 removed 09/2018 Family History Medical History Relation Name Comments Other: Alzheimer's disease Father Hypertension Mother cholesterol, [place] , stroke Thyroid disease Sister 1 Ovarian cancer Sister 2 stage 1 Breast cancer Neg Hx Colon cancer Neg Hx Pancreatic cancer Neg Hx Prostate cancer Neg Hx Uterine cancer Neg Hx Relation Name Status Comments Father Mother Sister 1 Sister 2 Social History Tobacco Use Types Packs/Day Years Used Date Smoking Tobacco: Never Smokeless Tobacco: Never Alcohol Use Standard Drinks/Week Comments No 0 (1 standard drink = 0.6 oz pur e alcohol) Comments Unknown Sex and Gender Information Value Date Recorded Sex Assigned at Not on file Legal Sex Female 10:47 AM EST Gender Identity Not on file Sexual Orientation Not on file Obstetrics History Last Filed Vital Signs Vital Sign Reading Time Taken Comments Blood Pressure 132/70 10/23/2022 11:36 AM EDT C Pulse 64 10/23/2022 11:36 AM EDT Temperature - - Respiratory Rate - - Oxygen Saturation - - Inhaled Oxygen Concentration - - Weight 73.9 kg (163 lb) 10/23/2022 11:36 AM EDT Height 156.2 cm (5' 1.5 ) 12/24/2021 9:12 AM EDT Body Mass Index 30.3 12/24/2021 9:12 AM EDT Plan of Treatment Health Maintenance Due Date Last Done Comments Zoster Vaccines (1 of 2) 05/30/2010 04/04/2010 COVID-19 Vaccine (3 - Modern a risk series) 08/16/2020 07/19/2020, 06/21/2020 RSV Immunization Adult Patients (1 - 1-dose 75+ series) 2021 Falls Risk Assessment 02/02/2022 Social Influencers of Health Screening 02/02/2022 Depression Screening 02/25/2024 Influenza Vaccine (#1) 2024 11/09/2017 Cholesterol Screening (Lipid Panel) 04/22/2027 04/22/2022 DTaP,Tdap,and Td Vaccines (3 - Td or Tdap) 12/18/2030 12/18/2020, 02/23/2009 Osteoporosis Screening (Bone Density Screening) 04/11/2031 04/11/2021, 08/12/2018, 05/14/2016 Hepatitis C Screening Completed 08/03/2012 Pneumococcal Vaccine: 50+ Years Completed 12/24/2017, 08/29/2011 HIB Vaccines Aged Out No longer eligi ble based on patient's age to complete this topic HPV Vaccines Aged Out No longer eligi ble based on patient's age to complete this topic Hepatitis A Vaccines Aged Out No long er eligible based on patient's age to complete this topic Hepatitis B Vaccines Aged Out No long er eligible based on patient's age to complete this topic IPV Vaccines Aged Out No longer eligi ble based on patient's age to complete this topic MMR Vaccines Aged Out No longer eligi ble based on patient's age to complete this topic Meningococcal ACWY Vaccine Aged Out N o longer eligible based on patient's age to complete this topic Meningococcal B Vaccine Aged Out No l onger eligible based on patient's age to complete this topic RSV Immunization Patients Under 20 months Aged Out No longer eligible b ased on patient's age to complete this topic Varicella Vaccines Aged Out No longer eligible based on patient's age to complete this topic Procedures Procedure Name Priority Date/Time Associated Diagnosis Comments LIPID PANEL Routine 04/22/2022 DXA BONE DENSITY STUDY 1+ SITS AXIAL SKEL Routine 04/11/2021 9:14 AM EST Other specified disorders of bone density and structure, unspecified site HEPATITIS C SCREENING Routine 08/03/2012 from Last 3 Months or Most Recently Relevant to Health Maintenance Results * Lipid panel (04/22/2022) LDL/HDL Ratio 2 0 - 4 Triglycerides 92 0 - 150 mg/dL Cholesterol 163 0 - 200 mg/dL HDL 82 >=40 mg/dL LDL Cholesterol 63 0 - 100 mg/dL Blood Venous blood specimen / Unknown Historical Provider LAB BLOOD ORDERABLES Mirtha penn Result * DXA BONE DENSITY STUDY 1+ SITS AXIAL SKEL (04/11/2021 9:14 AM EST) Anatomical Region Laterality Modality Bone Densitometr y 10/12/2020 11:2 1 AM EDT Narrative 04/12/2021 1:13 PM EST BONE DENSITY (DEXA) Lumbar Spine T-score is -2.0. (SD relative to 20-29 y/o adult) Z-score is 0.4. (SD relative to age matched peers) This is considered osteopenia by WHO criteria. Left Hip T-score is -2.5. Z-score is -0.4. This is considered osteoporosis by WHO criteria. Lateral view of the spine demonstrates vertebral heights to be maintained. IMPRESSION: This patient is considered to have osteoporosis by WHO criteria. The [facility] Department of Internal Medicine recommends using National Osteoporosis Foundation (NOF) guidelines in treatment decisions related to osteoporosis. NOF guidelines suggest considering treatment for postmenopausal women and men aged 50 or older presenting with the following: History of hip or vertebral fracture. T-score = -2.5 (DXA) at the femoral neck, total hip, or spine, after appropriate evaluation to exclude secondary causes. Low bone mass (T-score between -1.0 and -2.5 at the femoral neck or spine) AND a 10-year probability of a hip fracture = 3% OR a 10-year probability of a major osteoporosis-related fracture = 20% based on the [place]-adapted WHO algorithm Please note that all treatment decisions require clinical judgment and consideration of individual patient factors, including patient preferences, co-morbidities, previous drug use, risk factors not captured in the FRAX model (e.g., frailty, falls, vitamin D deficiency, increased bone turnover, interval significant decline in bone density) and possible under- or over-estimation of fracture risk by FRAX. Optional alternative screening schedule based on ritesh Gonzalez., [facility] 2011 for patients with osteopenia (based on hip BMD T-score) is as follows: * advanced osteopenia (T scores -2.00 to -2.49), BMD testing every year * moderate osteopenia (T scores -1.50 to -1.99), BMD testing every 5 years mild osteopenia or normal BMD (T scores -1.50 and higher), BMD testing every 15 years Procedure Note Isa Kwong MD - 02/12/2022 BONE DENSITY (DEXA) Lumbar Spine T-score is -2.0. (SD relative to 20-29 y/o adult) Z-score is 0.4. (SD relative to age matched peers) This is considered osteopenia by WHO criteria. Left Hip T-score is -2.5. Z-score is -0.4. This is considered osteoporosis by WHO criteria. Lateral view of the spine demonstrates vertebral heights to bemaintained. IMPRESSION: This patient is considered to have osteoporosis by WHO criteria. The [facility] Department of Internal Medicine recommendsusing National Osteoporosis Foundation (NOF) guidelines in treatment decisions related toosteoporosis. NOF guidelines suggest considering treatment for postmenopausal women and menaged 50 or older presenting with the following: History of hip or vertebral fracture. T-score = -2.5 (DXA) at the femoral neck, total hip, or spine, afterappropriate evaluation to exclude secondary causes. Low bone mass (T-score between -1.0 and -2.5 at the femoral neck or spine)AND a 10-year probability of a hip fracture = 3% OR a 10-year probability of a majorosteoporosis-related fracture = 20% based on the [place]-adapted WHO algorithm Please note that all treatment decisions require clinical judgment andconsideration of individual patient factors, including patient preferences, co- morbidities,previous drug use, risk factors not captured in the FRAX model (e.g., frailty, falls, vitaminD deficiency, increased bone turnover, interval significant decline in bone density) andpossible under- or over-estimation of fracture risk by FRAX. Optional alternative screening schedule based on fabrice Gonzalez al., NEJMJanuary 2011 for patients with osteopenia (based on hip BMD T-score) is as follows: * advanced osteopenia (T scores -2.00 to -2.49), BMD testing every year * moderate osteopenia (T scores -1.50 to -1.99), BMD testing every 5years mild osteopenia or normal BMD (T scores -1.50 and higher), BMD testingevery 15 years [facility]ODRIGUE[facility] DXA PROCEDURES Final Result * Hepatitis C Screening (08/03/2012) Pathologist [facility] Hepatitis C Screening abstracted Historical Provider HEALTH MAINTENANCE Final Result from Last 3 Months or Most Recently Relevant to Health Maintenance 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
[2024-11-27 12:30] LABS: Alanine Aminotransferase 30 U/L (0-31); Albumin Level 4.3 g/dL (3.5-5.0); Alkaline Phosphatase 65 U/L (39-117); Anion Gap 11 (12-20); Aspartate Amino Transferase 38 U/L (5-31); Blood Urea Nitrogen 11 mg/dL (9-16); Calcium 10.1 mg/dL (8.4-10.2); Carbon Dioxide 28 mmol/L (22-29); Chloride 108 mmol/L (96-108); Estimated Glomerular Filt Rate > 60; Potassium 4.6 mmol/L (3.3-5.1); Sodium 142 mmol/L (135-145); Total Protein 6.7 g/dL (6.5-8.0)
== END 2024-11-27 07:49 | disposition home or self-care (01) ==
LOC: HO.HMGCLDS 07:48
PROVIDERS: PCP Internal Medicine; Visit Provider Internal Medicine
DX: Z00.00 Encounter for general adult medical examination without abnormal findings (principal); R79.89 Other specified abnormal findings of blood chemistry
CPT/HCPCS: 36415; 80053